=== PATIENT | male | born 1965 | race African-American/Black ===

== ENCOUNTER 2016-12-09 18:26 | Emergency (ER) | payer SELFPAY ==
[~2016-12-09] VITALS: Ht 177.8 cm; Wt 78.0 kg
[2016-12-09 21:25] VITALS: BP 115/71
[2016-12-09] MEDS ORDERED: TETANUS, DIPHTHERIA, PERTUSSIS VAC/PF 0.5ML (>7YR OLD) IM ONE (21:30)
== END 2016-12-09 23:10 | disposition left against medical advice (07) ==
LOC: ER 18:43
DX: S01.01XA Laceration without foreign body of scalp, initial encounter (principal); S00.83XA Contusion of other part of head, initial encounter; I10 Essential (primary) hypertension; F10.129 Alcohol abuse with intoxication, unspecified; F17.200 Nicotine dependence, unspecified, uncomplicated; W18.39XA Other fall on same level, initial encounter; Y93.E1 Activity, personal bathing and showering; Y99.8 Other external cause status; Y92.89 Other specified places as the place of occurrence of the external cause; Z88.0 Allergy status to penicillin
CPT/HCPCS: 70450; 70486; 72125; 99284; X7700; Z7610

== ENCOUNTER 2024-08-27 22:23 | Emergency (ER) | payer SELFPAY ==
[~2024-08-27] VITALS: Ht 175.3 cm; Wt 80.0 kg
[2024-08-27 22:30] VITALS: O2SAT 99
[2024-08-27 22:40] VITALS: BP 110/74; PULSE 78; RESP 18; TEMP 36.9; O2SAT 99
[2024-08-27 23:38] LABS: BASOPHILS % 1.8 % (0.0-2.0); EOSINOPHILS % 0.8 % (0.0-5.0); HEMATOCRIT. 37.6 % (42.0-52.0); HEMOGLOBIN. 12.6 g/dL (14.0-18.0); LYMPHOCYTES % 58.4 % (20.0-50.0); MEAN CORPUSCULAR HEMOGLOBIN 30.8 pg (28.0-32.0); MEAN CORPUSCULAR HGB CONC 33.6 g/dL (31.0-37.0); MEAN CORPUSCULAR VOLUME 91.9 fL (80.0-94.0); MEAN PLATELET VOLUME 6.6 fl (7.4-10.4); MONOCYTES % 8.5 % (2.0-8.0); NEUTROPHILS % 30.5 % (40.0-76.0); PLATELET 348 x1000/uL (130-400); RED CELL DISTRIBUTION WIDTH 13.9 % (11.6-14.6); WHITE BLOOD COUNT 4.7 x1000/uL (4.5-11.0)
[2024-08-27 23:42] LABS: CHLORIDE 110 mEq/L (98-107); POTASSIUM 4.2 mEq/L (3.5-5.1); SODIUM 140 mEq/L (136-145)
[2024-08-27 23:43] LABS: CALCIUM 8.9 mg/dL (8.7-10.4); CARBON DIOXIDE 24 mEq/L (21-32)
[2024-08-27] MEDS: HYDROCODONE/ACETAMINOPHEN 5/325MG TABLET PO STA (23:47)
[2024-08-27] MEDS: KETOROLAC 30MG/ML VIAL IM STA (23:47)
[2024-08-27 23:48] LABS: CREATININE 0.9 mg/dL (0.6-1.3); GLUCOSE 105 mg/dL (70-105); UREA NITROGEN BLOOD 10 mg/dL (9-23)
[2024-08-28] MEDS ORDERED: IBUP-2030 MT (01:04)
== END 2024-08-28 01:46 | disposition home or self-care (01) ==
LOC: ER 22:23
DX: K40.90 Unilateral inguinal hernia, without obstruction or gangrene, not specified as recurrent (principal); F10.90 Alcohol use, unspecified, uncomplicated; Z79.899 Other long term (current) drug therapy; Z88.0 Allergy status to penicillin; Y90.9 Presence of alcohol in blood, level not specified
CPT/HCPCS: 99285; 74176; 80048; 85025; 36415; 96372; J1885

== ENCOUNTER 2024-08-28 04:01 | Emergency (ER) | payer SELFPAY ==
[~2024-08-28] VITALS: Ht 175.3 cm; Wt 80.0 kg
[~2024-08-28 04:01] MED LIST: IBUP-2030 MT
[2024-08-28 04:15] VITALS: BP 126/78; RESP 18; TEMP 36.9; O2SAT 100
[2024-08-28 04:19] VITALS: PULSE 72; O2SAT 98
== END 2024-08-28 11:39 | disposition home or self-care (01) ==
LOC: ER 04:01
DX: Z76.89 Persons encountering health services in other specified circumstances (principal); Z88.0 Allergy status to penicillin
CPT/HCPCS: 99283